=== PATIENT | male | born 1995 | race Caucasian/White ===

== ENCOUNTER 2020-04-15 16:27 | Emergency (ER) | payer BC, SELFPAY ==
[~2020-04-15] VITALS: Ht 182.9 cm; Wt 79.4 kg
[2020-04-15 16:59] VITALS: Ht 182.9 cm; Wt 79.4 kg
[2020-04-15 17:30] VITALS: BP 129/80
== END 2020-04-15 17:30 | disposition home or self-care (01) ==
LOC: ED 16:27
DX: J03.90 Acute tonsillitis, unspecified (principal)
CPT/HCPCS: J1100